=== PATIENT | female | born 1985 | race African-American/Black ===

== ENCOUNTER 2016-10-14 08:42 | Emergency (ER) | payer MEDICAID ==
[~2016-10-14] VITALS: Ht 165.1 cm; Wt 50.0 kg
[~2016-10-14 08:42] MED LIST: AMOX500T PO; MACR100C PO; NAPR550 PO
[2016-10-14 08:44] VITALS: BP 108/78; PULSE 98; RESP 16; TEMP 98.4; O2SAT 98
[2016-10-14] MEDS ORDERED: PERM5CRE TOPICAL (09:07)
--- NOTE | 2016-10-14 09:08 | PD ---
HPI Chief Complaint: Skin Problem Time Seen by Provider: 09:07 Travel History International Travel<30 days: No Contact w/Intl Traveler<30days: No Traveled to known affect area: No History of Present Illness HPI 31-year-old female presents to the emergency department for evaluation of possible scabies. The patient brought her 3 children to the emergency department earlier this morning and they were diagnosed with scabies by one of our emergency physicians. The patient states that for the past 3 days she and her children have had pruritic lesions. States that she has itching in the middle of her chest and underneath her left breast and underneath her right thigh. Denies any fever, chills, nausea, vomiting, cough or cold symptoms. Denies any change of soaps or detergents. Denies . No other complaints. PFSH Past Medical History Anxiety: Yes Cardiovascular Problems: Yes (HTN) Diminished Hearing: No Gastrointestinal Disorders: Yes (HERNIA) Inguinal Hernia: Yes (LEFT) Immunizations Current: Yes Tetanus Vaccination: < 5 Years Influenza Vaccination: Yes ?: Not Menopausal: No : 5 Para: 3 Miscarriage: 1 : 1 Dilation and Curettage (D&C): Yes Tubal Ligation: Yes Past Surgical History Surgical History: No Previous Surgery Social History Alcohol Use: No Tobacco Use: Yes (BLACK & MILD) Substance Use: No (HX) Allergies-Medications (Allergen,Severity, Reaction): Coded Allergies: No Known Allergies (Verified , 11/16/15) Reported Meds & Prescriptions Reported Meds & Active Scripts Active Permethrin Topical 5% (Permethrin) 5% Cream 1 Applic TOPICAL ONCE Amoxicillin 500 Mg Cap 500 Mg PO TID Anaprox Ds (Naproxen Sodium) 550 Mg Tab 550 Mg PO BID PRN Macrobid (Nitrofurantoin Macrocrystals) 100 Mg Cap 100 Mg PO BID Review of Systems Except as stated in HPI: all other systems reviewed are Neg Physical Exam Narrative GENERAL: Well-nourished and well-developed pleasant patient in no acute distress who is nontoxic appearing. SKIN: Warm and dry. Pinpoint erythematous skin lesion to lower chest wall with burrowing track underneath the left breast. HEAD: Normocephalic and atraumatic. EYES: No injection, drainage, or hyphema noted. PERRLA. EOMI. ENT: No nasal drainage noted. Oropharynx is clear. NECK: Supple and the trachea is midline. CARDIOVASCULAR: Regular rate and rhythm. RESPIRATORY: Breath sounds are equal bilaterally with no accessory muscle use, wheezing, rhonchi, or crackles. MUSCULOSKELETAL: No obvious deformities, swelling, cyanosis, or ecchymosis is present throughout the upper and lower extremities. Patient has full range of motion without any signs of neurovascular compromise. NEUROLOGICAL: Awake, alert, and oriented. Normal speech and gait. Cranial nerves are grossly intact. Data Data Last Documented VS Vital Signs Date Time Temp Pulse Resp B/P Pulse Ox O2 Delivery O2 Flow Rate FiO2 10/14/16 08:44 98.4 98 16 108/78 98 Room Air MDM Medical Decision Making Medical Screen Exam Complete: Yes Emergency Medical Condition: Yes Differential Diagnosis Scabies versus allergic reaction versus bed bugs Narrative Course 31-year-old female presents to the emergency department for evaluation of scabies. Patient is afebrile, vital signs are stable. Her 3 children and had the same symptoms over the past 3 days. Her physical examination does appear to be scabies. She'll be placed on permethrin cream. Discussed supportive care and elimination of mites. Patient verbalizes understanding and agreement with treatment plan. Diagnosis Primary Impression: Scabies Patient Instructions: General Instructions, Scabies (ED) Additional Instructions: Use cream as prescribed. Place any clothing, linens, stuffed animals in a plastic bag for 3 days and then wash with hot water and dry on hot in the dryer. Follow-up with your Primary Care Physician. Return to the ED for any acute worsening of symptoms. Med/Other Pt SpecificInfo: Prescription(s) given Scripts Permethrin Topical 5% 5% Cream1 Applic TOPICAL ONCE #1 TUBE Ref 1 Prov:Uri Carrillo MD 10/14/16 Disposition: 01 DISCHARGE HOME Condition: Stable China Ricks Oct 14, 2016 09:08
== END 2016-10-14 09:24 | disposition home or self-care (01) ==
LOC: NEPK 08:42
DX: B86 Scabies (principal); I10 Essential (primary) hypertension; F41.9 Anxiety disorder, unspecified; Z79.2 Long term (current) use of antibiotics; Z79.899 Other long term (current) drug therapy; Z72.0 Tobacco use
CPT/HCPCS: 99283